=== PATIENT | male | born 1985 | race Two or more races ===

== ENCOUNTER → 2020-10-24 | Outpatient (CLI) | payer BC ==
--- NOTE | 2020-10-24 12:11 | CARD ---
MR#: [id number] Date of Study: 10/24/2020 Ordering Physician: REX PETERSON, Referring Physician: REX PETERSON, Tech: Nubia Baca [facility] APPROVED REPORT EXAM: Two-dimensional and M-mode echocardiogram with Doppler and color Doppler. Other Information Quality : GoodHR: 77bpm Rhythm : NSR INDICATION Palpitations 2D DIMENSIONS RVDd3.5 (2.9-3.5cm)Left Atrium(2D)2.9 (1.6-4.0cm) IVSd0.9 (0.7-1.1cm)Aortic Root(2D)3.2 (2.0-3.7cm) LVDd4.6 (3.9-5.9cm)LVOT Diameter2.3 (1.8-2.4cm) PWd1.0 (0.7-1.1cm)LVDs2.8 (2.5-4.0cm) FS (%) 40.1 %SV69.7 ml Aortic Valve AoV Peak Aubrey.136.5cm/sAoV VTI25.9cm AO Peak GR.7.5mmHgLVOT Peak Aubrey.111.5cm/s AO Mean GR.4mmHgAVA (VMAX)3.34cm2 Mitral Valve MV E Mntwfgai39.7cm/sMV DECEL [id number] MV A Qbfblvaf39.4cm/sE/A Ratio1.1 MVA Clmsdoarya58.01cm2 Pulmonary Valve PV Peak Wwbhainu089.4cm/s Pulmonary Vein S1 Coqsgmij11.9cm/sD2 Xbukgkhi41.3cm/s PVa [id number] LEFT VENTRICLE The left ventricle is normal size. There is normal left ventricular wall thickness. The left ventricu lar systolic function is normal and the ejection fraction is within normal range. Estimated ejection fraction 50-55%. There is normal LV segmental wall motion. The left ventricular diastolic function a nd filling is normal for age. RIGHT VENTRICLE The right ventricle is normal size. There is normal right ventricular wall thickness. The right ventr icular systolic function is normal. ATRIA The left atrium size is normal. The right atrium size is normal. The interatrial septum is intact wit h no evidence for an atrial septal defect or patent foramen ovale as noted on 2-D or Doppler imaging. AORTIC VALVE The aortic valve is normal in structure and function. Doppler and Color Flow revealed no significant aortic regurgitation. There is no significant aortic valvular stenosis. MITRAL VALVE The mitral valve is normal in structure and function. There is no evidence of mitral valve prolapse. There is no mitral valve stenosis. Doppler and Color-flow revealed trace mitral regurgitation. TRICUSPID VALVE The tricuspid valve is normal in structure and function. Doppler and Color Flow revealed no tricuspid valve regurgitation noted. PULMONIC VALVE The pulmonary valve is normal in structure and function. Doppler and Color Flow revealed trace pulmon ic valvular regurgitation. GREAT VESSELS The aortic root is normal in size. The ascending aorta is normal in size. The pulmonary artery is nor mal. The IVC is normal in size and collapses >50% with inspiration. PERICARDIAL EFFUSION There is no evidence of significant pericardial effusion. Critical Notification Critical Value: No <Conclusion> The left ventricle is normal size. The left ventricular systolic function is normal and the ejection fraction is within normal range. Estimated ejection fraction 50-55%. Doppler and Color Flow revealed no significant aortic regurgitation. There is no significant aortic valvular stenosis. Doppler and Color-flow revealed trace mitral regurgitation. Doppler and Color Flow revealed no tricuspid valve regurgitation noted. Signed by : Anmol Pham MD Electronically Approved : 10/24/2020 12:11:04
== END ==
LOC: ECHO 10:29
PROVIDERS: ATTEND Internal Medicine
DX: R00.0 Tachycardia, unspecified (principal); R00.9 Unspecified abnormalities of heart beat; R00.2 Palpitations; Z86.19 Personal history of other infectious and parasitic diseases
CPT/HCPCS: 93306